=== PATIENT | female | born 1955 | race Caucasian/White ===

== ENCOUNTER 2020-06-17 11:48 | Emergency (ER) | payer BC, OTHER ==
[~2020-06-17] VITALS: Ht 172.7 cm; Wt 70.8 kg
[2020-06-17] MEDS ORDERED: MORPHINE SULFATE INJ 4 MG/ML DISP.SYRIN ONE (12:05)
[2020-06-17] MEDS ORDERED: ONDANSETRON HCL/PF 4 MG/2 ML VIAL ONE (12:05)
--- NOTE | 2020-06-17 12:10 | NUR ---
BIB SELF C/O L 4TH DIGIT DISLOCATION. VS CHECKED. IV ACCESS STARTED. AWAITING MD RYDER.
--- NOTE | 2020-06-17 12:22 | NUR ---
XRAY BY BEDSIDE
[2020-06-17] MEDS ORDERED: PROPOFOL 20 ML IV ONE (12:25)
[2020-06-17] MEDS ORDERED: ONDANSETRON HCL/PF 4 MG/2 ML VIAL IVP ONE (12:30)
[2020-06-17] MEDS ORDERED: MORPHINE SULFATE INJ 2 MG/ML DISP.SYRIN IV ONE (12:30)
--- NOTE | 2020-06-17 12:40 | NUR ---
PT S/P FINGER REDUCTION OF L 4TH AND [address]TH FINGER BY DR. PETER. PT AWAKE ALERT AND ORIENTED. ANSWERS QUESTIONS APPROPRIATELY.
[2020-06-17] MEDS ORDERED: PROPOFOL 200 MG/20 ML VIAL IV ONE (13:00)
--- NOTE | 2020-06-17 13:34 | NUR ---
Patient discharged to home in stable condition. Written and verbal after care instructions given. Patient verbalizes understanding of instruction. IV removed. Catheter intact and site benign. Pressure and 4x4 applied to site. No bleeding noted.
[2020-06-17 13:35] VITALS: BP 138/71
== END 2020-06-17 13:38 | disposition home or self-care (01) ==
LOC: ER 11:52
DX: S62.617A Displaced fracture of proximal phalanx of left little finger, initial encounter for closed fracture (principal); S62.615A Displaced fracture of proximal phalanx of left ring finger, initial encounter for closed fracture; S80.212A Abrasion, left knee, initial encounter; E03.9 Hypothyroidism, unspecified; W01.0XXA Fall on same level from slipping, tripping and stumbling without subsequent striking against object, initial encounter; Y93.K1 Activity, walking an animal; Y92.89 Other specified places as the place of occurrence of the external cause; Y99.8 Other external cause status
CPT/HCPCS: 26725 ×2; 73120; 73130; 96374; 96375; 99285; J2270; J2405; J2704